=== PATIENT | male | born 1935 | race Caucasian/White ===

== ENCOUNTER 2024-05-07 14:54 | Outpatient (RCR) | payer MEDICARE, BC, SELFPAY | END 2024-09-04 23:59 | disposition home or self-care (01) | PROVIDERS: PCP Surgery; Visit Provider Surgery | DX: R41.89 Other symptoms and signs involving cognitive functions and awareness (principal); Z51.89 Encounter for other specified aftercare | CPT/HCPCS: 97165; 97166 ==